=== PATIENT | female | born 1975 | race Caucasian/White ===

== ENCOUNTER 2019-03-07 07:21 | Day surgery (SDC) | payer BC ==
--- NOTE | 2019-03-02 11:34 | RAD REPORT ---
EXAM DESCRIPTION: RAD - Chest Pa And Lat (2 Views) - 03/02/2019 11:29 am CLINICAL HISTORY: preop Chest pain. COMPARISON: No comparisons FINDINGS: The lungs are clear. The heart is normal in size. No displaced fractures. IMPRESSION: No acute or concerning finding suspected.
[2019-03-02 11:49] LABS: Absolute Lymphocytes (CBC) 1.4 K/uL (0.7-4.9); Basophils % 0.6 % (0-1.3); Hematocrit 40.6 % (36.0-45.0); Lymphocytes % 36.8 % (15.3-44.8); MPV 8.7 fL (7.6-11.3); RBC Red Blood Cell Count 4.57 M/uL (3.86-4.86)
[2019-03-02 11:52] LABS: Potassium 3.6 mmol/L (3.5-5.1)
--- NOTE | 2019-03-04 08:11 | EKG ---
Test Date: 2019-03-02 Test Time: 10:57:52 Director Of Financial Planning: TED MEASUREMENT RESULTS: Intervals: Rate: 64 OK: 136 QRSD: 88 QT: 400 QTc: 412 [place]: P: 43 OK: 136 QRS: 19 T: -12 INTERPRETIVE STATEMENTS: Normal sinus rhythm Nonspecific T wave abnormality Abnormal ECG No previous ECG available for comparison Electronically Signed On 03-04-19 08:07:33 CDT by Dom Fisher
[2019-03-07 07:39] LABS: Specific Gravity 1.015 (1.005-1.030)
[2019-03-07] MEDS ORDERED: Ringers Lactate 1,000 ML IV ONE (07:40)
[2019-03-07] MEDS ORDERED: CEFAZOLIN/SWI 1gm 1 GM/10 ML SYR ONE (07:40)
[2019-03-07] MEDS ORDERED: PROPOFOL 200 MG/20 ML VIAL IV ONE (08:59)
[2019-03-07] MEDS ORDERED: LIDOCAINE 2% MPF 5 ML VIAL ONE (08:59)
[2019-03-07] MEDS ORDERED: FENTANYL CITR 100 MCG/2 ML ONE (08:59)
[2019-03-07] MEDS ORDERED: MIDAZOLAM HCL 2 MG/2 ML INJ ONE (08:59)
[2019-03-07] MEDS ORDERED: dexAMETHasone 10 MG/ML VIAL ONE (09:23)
[2019-03-07] MEDS ORDERED: ONDANSETRON 4 MG/2 ML VIAL ONE (09:41)
--- NOTE | 2019-03-07 09:50 | P.BOP ---
Preoperative diagnosis: trauma, fall, traumatic wound/laceration with retained FB x 4 L knee/leg Postoperative diagnosis: same Primary procedure: 1. Wound exploration with foreign body removal x 3 left knee Secondary procedure: 2. Wound exploration with foreign body removal x 1 left leg Other procedure(s): 3. Interpretation of fluoroscopy Estimated blood loss: <10cc Specimen: 4 FB Findings: 4 FB Anesthesia: General Complications: None Transferred to: Recovery Room Condition: Good
[2019-03-07] MEDS: HYDROMORPHONE HCL 1 MG/ML INJ ONE ×2 (10:07→10:17)
--- NOTE | 2019-03-07 11:36 | RAD REPORT ---
EXAM DESCRIPTION: RAD - Knee Left 2 View - 03/07/2019 9:58 am CLINICAL HISTORY: Foreign body removal COMPARISON: None. FINDINGS: Two portable C-arm views were obtained during fluoroscopic assisted removal of foreign bod y near the right knee. No suspicious or unexpected finding. Fluoro time was 0.1 minutes.
--- NOTE | 2019-03-08 00:27 | DS ---
Date of Discharge: 03/07/2019 Diagnosis: Traumatic lacerations and wounds over the left knee and leg x4. Procedure: Wound exploration with removal of foreign body x4 of the left knee and left leg under flu oroscopy. Disposition: Home. Followup: Follow up in my office in 1 week. Call for appointment, [phone]. The patient will be us ing triple antibiotics and gauze over the areas. May clean the area with soap and water. Medications: See orders. BALDO/IK Voice ID: [id number] Report ID: [id number]
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
== END 2019-03-07 12:10 | disposition home or self-care (01) ==
LOC: OR 07:21
PROVIDERS: ATTEND Surgery
PROC: 0JCM0ZZ Extirpation of Matter from Left Upper Leg Subcutaneous Tissue and Fascia, Open Approach (ICD-10-PCS; principal; 2019-03-07 10:00)
DX: S81.022A Laceration with foreign body, left knee, initial encounter (principal); S81.822A Laceration with foreign body, left lower leg, initial encounter; J45.909 Unspecified asthma, uncomplicated; Z80.8 Family history of malignant neoplasm of other organs or systems
CPT/HCPCS: 93005; 85025; 80048; 36415; 81025; 88300; 71046; 73560; 27372; J2704; J2250; J3010; J1100; J1170; J0690; J2405

== ENCOUNTER 2021-10-17 10:14 | Emergency (ER) | payer BC ==
--- OUTSIDE RECORDS SUMMARY | 2021-10-17 10:17 | XMS REPORT | Continuity of Care Document ---
:1975 Author Organization [facility] t Address [address] [place] [address] Care Team Providers Name Role Phone MICHAEL Attending Clinician Unavailable Aristeo Fields Attending Clinician [phone] Sue Plaza Attending Clinician Unavailable MICHAEL Admitting Clinician Unavailable Physician, Primary or Family Admitting Clinician Unavailabl e Payers Payer Name Policy Type Policy Number Effective Date Expiration Date [place] [id number] 2018 00:00:00 [place] Problems This patient has no known problems. Allergies, Adverse Reactions, Alerts Allergy Allergy Status Severity Reaction(s) Onset Inactive Treating Comm ents Source Name Type Date Date Clinician No Known DA Active U 2007-0 [facility] [place] No Known DA Active U 2006-0 [facility] Drug [facility] [place] No Known DA Active U 2007-0 [facility] Food 2[facility]22 [facility] [place] No Known DA Active U 2006-0 [facility] Other 2[facility]22 [facility] [place] No Known DA Active U 2004-0 [facility] Drug 7[facility]18 [facility] [place] Medications This patient has no known medications. Procedures This patient has no known procedures. Encounters Start End Encounter Admission Attending Care Care Encounter Source Date/Time Date/Time Type Type Clinicians Facility Department ID 2021-07-15 2021-07-15 Outpatient ERICKSON_R [facility] [address] 02:38:00 02:38:00 [facility] 2021-02-26 2021-02-26 Outpatient ERICKSON_R [facility] [address] 06:27:00 06:27:00 [facility] 2021-02-26 2021-02-26 Outpatient Donnie [facility] [id number] 00:00:00 00:00:00 Gennaro [id number] Aristeo [id number] 2021-02-19 2021-02-19 Outpatient ERELIASON_R [facility] [address] 11:26:00 11:26:00 08[facility] 2020-07-30 2020-07-30 Outpatient ROJAS Plaza MARLENE RINALDI [id number] 2-20 [facility] 12:00:00 12:00:00 Viola [id number] [facility] 2019-07-10 2019-07-10 Outpatient ROJAS Plaza MARLENE RINALDI [id number] 2-20 [facility] 12:00:00 12:00:00 Viola [id number] [facility] Results This patient has no known results.
--- NOTE | 2021-10-17 11:23 | RAD REPORT ---
EXAM DESCRIPTION: RAD - Chest Single View - 10/17/2021 11:19 am CLINICAL HISTORY: COUGH COMPARISON: Chest Pa And Lat (2 Views) dated 03/02/2019 FINDINGS: Lines: None. Lungs: No evidence of edema or pneumonia. Pleural: No significant pleural effusions or pneumothorax. Cardiac: The heart size is within normal limits. Bones: No acute fractures. Other: IMPRESSION: No acute cardiopulmonary disease.
[2021-10-17 11:32] LABS: Absolute Lymphocytes (CBC) 1.4 K/uL (0.7-4.9); Hematocrit 41.3 % (36.0-45.0); Lymphocytes % 23.3 % (15.3-44.8); MPV 7.9 fL (7.6-11.3); RBC Red Blood Cell Count 4.78 M/uL (3.86-4.86)
[2021-10-17 11:50] LABS: Albumin 4.8 g/dL (3.4-5.0); Bilirubin Direct 0.1 mg/dL (0-0.2); Bilirubin Total 0.4 mg/dL (0.2-1.0); Magnesium 2.4 mg/dL (1.8-2.4); Potassium 3.5 mmol/L (3.5-5.1); Protein, Total 8.7 g/dL (6.4-8.2); Troponin High Sensitivity 10.3 pg/mL (<58.9)
[2021-10-17 11:52] LABS: Urine Blood Trace-intact (Negative); Urine Glucose Negative (Negative); Urine Protein Negative (Negative); Urine Specific Gravity 1.015 (1.005-1.030)
--- NOTE | 2021-10-17 12:10 | ER ---
Nurse's Notes [facility] Name: Amber Marquis Age: 46 yrs Sex: Female : 1975 Arrival Date: 10/17/2021 Time: 10:15 Bed 14 Private MD: Diagnosis: Essential (primary) hypertension Presentation: 10/17 10:45 Chief complaint: Patient states: I MEASURED MY BLOOD PRESSURE AND IT WAS HIGH. bp Coronavirus screen: At this time, the client does not indicate any symptoms associated with coronavirus-19. Ebola Screen: No symptoms or risks identified at this time. Initial Sepsis Screen: Does the patient meet any 2 criteria? No. Patient's initial sepsis screen is negative. Does the patient have a suspected source of infection? No. Patient's initial sepsis screen is negative. Risk Assessment: Do you want to hurt yourself or someone else? Patient reports no desire to harm self or others. Onset of symptoms was October 17, 2021 at 02:30. 10:45 Method Of Arrival: Ambulatory bp 10:45 Acuity: XIMENA 3 bp Triage Assessment: 10:45 General: Appears in no apparent distress. comfortable, obese, Behavior is cooperative, bp appropriate for age, anxious. Pain: Denies pain. EENT: No deficits noted. Neuro: No deficits noted. Cardiovascular: Reports chest pain. Respiratory: No deficits noted. GI: No signs and/or symptoms were reported involving the gastrointestinal system. : No signs and/or symptoms were reported regarding the genitourinary system. Derm: No deficits noted. Musculoskeletal: No deficits noted. Historical: - Allergies: 10:45 No Known Allergies; bp - Home Meds: 10:45 None [Active]; bp - PMHx: 10:45 Hypertensive disorder; bp - Immunization history:: Client reports having NOT received the Covid vaccine. - Social history:: Smoking status: Patient denies any tobacco usage or history of. Screenin:45 Abuse screen: Denies threats or abuse. Denies injuries from another. Nutritional bp screening: No deficits noted. Tuberculosis screening: No symptoms or risk factors identified. Fall Risk None identified. Assessment: 10:45 General: SEE TRIAGE NOTE. bp 12:53 Reassessment: PT D/C HOME AMBULATORY WITH FAMILY, DX WITH ESSENTIAL HTN. bp Vital Signs: 11:25 BP 157 / 95; Pulse 86; Resp 17; Temp 98.1(O); Pulse Ox 100% on R/A; Weight 76.2 kg (R); mb7 Height 5 ft. 4 in. (162.56 cm) (R); 11:35 BP 144 / 97; Pulse 86; Resp 16; Pulse Ox 100% ; bp 12:30 BP 132 / 84; Pulse 74; Resp 13; Pulse Ox 98% ; bp 11:25 Body Mass Index 28.84 (76.20 kg, 162.56 cm) mb7 ED Course: 10:15 Patient arrived in ED. am2 10:43 Tang Dos Santos MD is Attending Physician. hunter 10:45 Arm band placed on. bp 11:08 Yemi Juarez, CHELSIE is Primary Nurse. bp 11:09 EKG done, by ED staff, reviewed by Tang Dos Santos MD. mb7 11:09 Patient has correct armband on for positive identification. Bed in low position. Call mb7 light in reach. Side rails up X 1. Door closed. Noise minimized. Warm blanket given. 11:21 XRAY Chest (1 view) In Process Unspecified. EDMS 11:26 Inserted saline lock: 20 gauge in right antecubital area, using aseptic technique. mb7 Blood collected. 11:27 Basic Metabolic Panel Sent. mb7 11:27 CBC with Diff Sent. mb7 11:27 LFT's Sent. mb7 11:27 Magnesium Sent. mb7 11:28 NT PRO-BNP Sent. mb7 11:28 PT-INR Sent. mb7 11:28 Troponin HS Sent. mb7 11:33 Triage completed. bp 12:10 Suzanna Chavez MD is Referral Physician. hunter 12:53 No provider procedures requiring assistance completed. IV discontinued, intact, bp bleeding controlled, No redness/swelling at site. Pressure dressing applied. Administered Medications: 12:15 Drug: Lisinopril 10 mg Route: PO; bp 12:54 Follow up: Response: No adverse reaction bp Outcome: 12:10 Discharge ordered by . hunter 12:53 Discharged to home ambulatory, with family. bp 12:53 Condition: stable 12:53 Discharge instructions given to patient, Instructed on discharge instructions, follow up and referral plans. medication usage, Demonstrated understanding of instructions, follow-up care, medications, Prescriptions given X 1. 12:55 Patient left the ED. bp Signatures: Dispatcher [employer] Tang Ramos MD MD cha Moreno, Amanda am2 Yemi Juarez, RN RN Yarelis Chauhan 7
--- NOTE | 2021-10-17 12:10 | EDPHYS ---
Physician Documentation [facility] Name: Amber Marquis Age: 46 yrs Sex: Female : 1975 Arrival Date: 10/17/2021 Time: 10:15 Bed 14 Private MD: ED Physician Tang Dos Santos HPI: 10/17 11:45 This 46 yrs old Female presents to ER via Ambulatory with complaints of High hunter Blood Pressure. 11:45 The patient has elevated blood pressure and discovered this at home, with a home hunter device. Onset: The symptoms/episode began/occurred 1 day(s) ago. Modifying factors: The symptoms are aggravated by activity, The symptoms are alleviated by remaining still. Associated signs and symptoms: The patient has no apparent associated signs or symptoms. Severity of symptoms: At its worst the blood pressure was mild, in the emergency department the blood pressure is unchanged. The patient has not experienced similar symptoms in the past. Historical: - Allergies: 10:45 No Known Allergies; bp - Home Meds: 10:45 None [Active]; bp - PMHx: 10:45 Hypertensive disorder; bp - Immunization history:: Client reports having NOT received the Covid vaccine. - Social history:: Smoking status: Patient denies any tobacco usage or history of. ROS: 11:46 Constitutional: Negative for fever, chills, and weight loss, Eyes: Negative for injury, hunter pain, redness, and discharge, ENT: Negative for injury, pain, and discharge, Neck: Negative for injury, pain, and swelling, Cardiovascular: Negative for chest pain, palpitations, and edema, Respiratory: Negative for shortness of breath, cough, wheezing, and pleuritic chest pain, Abdomen/GI: Negative for abdominal pain, nausea, vomiting, diarrhea, and constipation, Back: Negative for injury and pain, : Negative for injury, bleeding, discharge, and swelling, MS/Extremity: Negative for injury and deformity, Skin: Negative for injury, rash, and discoloration, Psych: Negative for depression, anxiety, suicide ideation, homicidal ideation, and hallucinations, Allergy/Immunology: Negative for hives, rash, and allergies, Endocrine: Negative for neck swelling, polydipsia, polyuria, polyphagia, and marked weight changes, Hematologic/Lymphatic: Negative for swollen nodes, abnormal bleeding, and unusual bruising. 11:46 Neuro: Positive for dizziness, weakness. Exam: 11:46 Constitutional: This is a well developed, well nourished patient who is awake, alert, hunter and in no acute distress. Head/Face: Normocephalic, atraumatic. Eyes: Pupils equal round and reactive to light, extra-ocular motions intact. Lids and lashes normal. Conjunctiva and sclera are non-icteric and not injected. Cornea within normal limits. Periorbital areas with no swelling, redness, or edema. ENT: Nares patent. No nasal discharge, no septal abnormalities noted. Tympanic membranes are normal and external auditory canals are clear. Oropharynx with no redness, swelling, or masses, exudates, or evidence of obstruction, uvula midline. Mucous membranes moist. Neck: Trachea midline, no thyromegaly or masses palpated, and no cervical lymphadenopathy. Supple, full range of motion without nuchal rigidity, or vertebral point tenderness. No Meningismus. Chest/axilla: Normal chest wall appearance and motion. Nontender with no deformity. No lesions are appreciated. Cardiovascular: Regular rate and rhythm with a normal S1 and S2. No gallops, murmurs, or rubs. Normal PMI, no JVD. No pulse deficits. Respiratory: Lungs have equal breath sounds bilaterally, clear to auscultation and percussion. No rales, rhonchi or wheezes noted. No increased work of breathing, no retractions or nasal flaring. Abdomen/GI: Soft, non-tender, with normal bowel sounds. No distension or tympany. No guarding or rebound. No evidence of tenderness throughout. Back: No spinal tenderness. No costovertebral tenderness. Full range of motion. Female : Normal external genitalia. Skin: Warm, dry with normal turgor. Normal color with no rashes, no lesions, and no evidence of cellulitis. MS/ Extremity: Pulses equal, no cyanosis. Neurovascular intact. Full, normal range of motion. Neuro: Awake and alert, GCS 15, oriented to person, place, time, and situation. Cranial nerves II-XII grossly intact. Motor strength 5/5 in all extremities. Sensory grossly intact. Cerebellar exam normal. Normal gait. Psych: Awake, alert, with orientation to person, place and time. Behavior, mood, and affect are within normal limits. 11:46 ECG was reviewed by the Attending Physician. Vital Signs: 11:25 BP 157 / 95; Pulse 86; Resp 17; Temp 98.1(O); Pulse Ox 100% on R/A; Weight 76.2 kg (R); mb7 Height 5 ft. 4 in. (162.56 cm) (R); 11:35 BP 144 / 97; Pulse 86; Resp 16; Pulse Ox 100% ; bp 12:30 BP 132 / 84; Pulse 74; Resp 13; Pulse Ox 98% ; bp 11:25 Body Mass Index 28.84 (76.20 kg, 162.56 cm) 7 MDM: 10:43 Patient medically screened. hunter 11:54 Differential diagnosis: hypertensive crisis, Malignant HTN, CVA, intracerebral hunter hemorrhage. Differential Diagnosis. Differential diagnosis: cardiac arrhythmia, generalized weakness, head injury, hypovolemia, idiopathic dizziness, near-syncope, TIA. Data reviewed: vital signs, nurses notes, lab test result(s), EKG, radiologic studies, plain films. Data interpreted: monitor worker: rate is 86 beats/min, rhythm is regular, Pulse oximetry: on room air is 100 %. Test interpretation: by ED physician or midlevel provider: ECG, plain radiologic studies. Counseling: I had a detailed discussion with the patient and/or guardian regarding: the historical points, exam findings, and any diagnostic results supporting the discharge/admit diagnosis, lab results, radiology results, the need for outpatient follow up, for definitive care, a memory care director, a family practitioner. 10/17 10:44 Order name: Basic Metabolic Panel; Complete Time: 12:10 10/17 10:44 Order name: CBC with Diff; Complete Time: 12:10 10/17 10:44 Order name: LFT's; Complete Time: 12:10 10/17 10:44 Order name: Magnesium; Complete Time: 12:10 10/17 10:44 Order name: NT PRO-BNP; Complete Time: 12:10 10/17 10:44 Order name: PT-INR; Complete Time: 12:10 10/17 10:44 Order name: Troponin HS; Complete Time: 12:10 10/17 10:44 Order name: XRAY Chest (1 view); Complete Time: 12:10 10/17 10:44 Order name: EKG; Complete Time: 10:44 10/17 10:44 Order name: Cardiac monitoring; Complete Time: 11:09 [facility] 10/17 10:44 Order name: EKG - Nurse/Tech; Complete Time: 11: [facility] 10/17 11:52 Order name: Urine Dipstick-Ancillary; Complete Time: 12:10 EDMS 10/17 11:56 Order name: Urine --Ancillary (enter results) em1 10/17 10:44 Order name: IV Saline Lock; Complete Time: 11:27 [facility] 10/17 10:44 Order name: Labs collected and sent; Complete Time: 11: [facility] 10/17 10:44 Order name: O2 Per Protocol; Complete Time: 11: [facility] 10/17 10:44 Order name: O2 Sat Monitoring; Complete Time: 11: [facility] 10/17 10:44 Order name: Urine Dipstick-Ancillary (obtain specimen); Complete Time: 11:53 [facility] 10/17 10:44 Order name: Urine Test (obtain specimen); Complete Time: 11:53 [facility] EC:46 Rate is 84 beats/min. Rhythm is regular. QRS [place] is Normal. [place] interval is normal. QRS hunter interval is normal. QT interval is normal. No Q waves. T waves are Normal. No ST changes noted. Clinical impression: NSR w/ Non-specific ST/T Changes and No evidence of ischemia. Interpreted by me. Reviewed by me. Administered Medications: 12:15 Drug: Lisinopril 10 mg Route: PO; bp 12:54 Follow up: Response: No adverse reaction bp Disposition Summary: 10/17/21 12:10 Discharge Ordered Location: Home hunter Problem: new hunter Symptoms: have improved hunter Condition: Stable hunter Diagnosis - Essential (primary) hypertension hunter Followup: hunter - With: Private Physician - When: 2 - 3 days - Reason: Recheck today's complaints, Continuance of care, Re-evaluation by your physician Followup: hunter - With: - When: 2 - 3 days - Reason: Recheck today's complaints, Re-evaluation by your physician Discharge Instructions: - Discharge Summary Sheet hunter - Hypertension, Adult hunter - Hypertension, Adult, [id number] hunter - How to Take Your Blood Pressure, [id number] hunter - Aspirin and Your Heart hunter - Managing Your Hypertension hunter Forms: - Medication Reconciliation Form hunter - Thank You Letter hunter - Antibiotic Education hunter - Prescription Opioid Use hunter Prescriptions: - Lisinopril 10 mg Oral Tablet - take 1 tablet by ORAL route once daily; 20 tablet; Refills: 0, Product hunter Selection Permitted Signatures: Dispatcher [employer] Tang Ramos MD MD cha Peltier, Brian, RN RN bp
[2021-10-17] MEDS ORDERED: lisinopriL 10 MG TAB ONE (12:20)
[2021-10-17 13:34] LABS: Urine Specific Gravity/Preg 1.015 (1.005-1.030)
[2021-10-17 13:58] VITALS: TEMP 98.1
[2021-10-17 14:02] VITALS: BP 132/84; O2SAT 98
== END 2021-10-17 12:55 | disposition home or self-care (01) ==
LOC: ER 10:14
DX: I10 Essential (primary) hypertension (principal); R53.1 Weakness
CPT/HCPCS: 36415; 71045; 80048; 80076; 81003; 81025; 83735; 83880; 84484; 85025; 85610; 93005; 99284